=== PATIENT | female | born 1990 | race Hispanic/Latino ===

== ENCOUNTER 2016-06-20 21:20 | Emergency (ER) | payer OTHER, SELFPAY ==
[2016-06-20 21:39] LABS: Bilirubin Negative (Negative); Blood, Urine Negative (Negative); Clarity Clear (Clear); Glucose, Urine (Dipstick) Negative (Negative); Leukocyte Negative (Negative); Nitrite Negative (Negative); Protein, Urine (Dipstick) Trace mg/dL (Neg-Trace); pH, Urine 8.5 (5.0-9.0)
[2016-06-20 21:41] LABS: Pregnancy Test - Urine (BHCG) NEGATIVE (NEGATIVE); Pregu Control Bar Appear? YES (CONTROL BAR)
[2016-06-20] MEDS ORDERED: Sodium Chloride 0.9% 1,000 ML ONE (21:55)
[2016-06-20] MEDS ORDERED: Ketorolac Tromethamine 30 MG/ML VIAL ONE (21:55)
[2016-06-20] MEDS ORDERED: Ondansetron HCl/PF 4 MG/2 ML Vial ONE (21:55)
[2016-06-20 22:22] LABS: #Basophils 0.1 thou/uL (0.0-0.2); #Eosinphils 0.1 thou/uL (0.0-0.7); #Monocytes 0.5 thou/uL (0.11-0.59); #Neutrophils 3.4 thou/uL (1.40-6.50); %Eosinophils 1.8 % (0.0-10.0); %Lymphocytes 42.7 % (21.0-51.0); %Monocytes 6.6 % (0.0-10.0); Mean Corpuscular Hemoglobin 26.9 pg (27.0-31.0); Mean Platelet Volume 7.4 fL (7.4-10.4); Platelet Count 246 thou/uL (130-400); RBC Distribution Width 14.5 % (11.5-14.5); Red Blood Cell (RBC) Count 4.09 mill/uL (4.20-5.40)
[2016-06-20 22:37] LABS: ALT (SGPT) 16 U/L (8-55); AST (SGOT) 15 U/L (5-34); Albumin 4.1 g/dL (3.5-5.0); Alkaline Phosphatase 71 U/L (40-150); Anion Gap 13 mmol/L (10-20); BUN (Urea Nitrogen) 10 mg/dL (7.0-18.7); Bilirubin, Total 0.2 mg/dL (0.2-1.2); Calc. Creatinine Clearance 0 mL/min (70-130); Calcium 9.1 mg/dL (7.8-10.44); Carbon Dioxide 26 mmol/L (22-29); Chloride 103 mmol/L (98-107); Estimated GFR-MDRD Greater than 90; Globulin 2.7 g/dL (2.4-3.5); Glucose 102 mg/dL (70-105); Lipase 26 U/L (8-78); Protein, Total 6.8 g/dL (6.0-8.3); Sodium 138 mmol/L (136-145)
[2016-06-22 00:24] LABS: Chlamydia by PCR Not Detected (NotDetected); GC by PCR Not Detected (NotDetected)
== END 2016-06-20 22:56 | disposition home or self-care (01) ==
LOC: NAV ERS 21:20
DX: R10.32 Left lower quadrant pain (principal); R10.12 Left upper quadrant pain; F17.210 Nicotine dependence, cigarettes, uncomplicated
CPT/HCPCS: 80053; 81003; 81025; 83690; 85025; 87491; 87591; 96361; 96374; 96375; J1885; J2405; J7050

== ENCOUNTER 2016-07-31 21:29 | Emergency (ER) | payer SELFPAY ==
[2016-07-31 22:07] LABS: Bilirubin Negative (Negative); Blood, Urine Moderate (Negative); Clarity Cloudy (Clear); Glucose, Urine (Dipstick) Negative (Negative); Leukocyte Moderate (Negative); Nitrite Positive (Negative); Protein, Urine (Dipstick) 100 mg/dL (Neg-Trace); Specific Gravity, Urine 1.015 (1.005-1.030); Urobilinogen 0.2 mg/dL (0.2-1.0)
[2016-07-31 22:08] LABS: Pregnancy Test - Urine (BHCG) Negative (NEGATIVE); Pregu Control Background? CLEAR/WHITE (CLR/WHITE); Pregu Control Bar Appear? YES (CONTROL BAR); Specific Gravity 1.015 (1.002-1.036)
[2016-07-31] MEDS ORDERED: Acetaminophen 325 MG TAB ONE (22:09)
[2016-07-31 22:10] LABS: Bacteria/HPF 3+ HPF (None Seen); RBC/HPF 21-50 HPF (0-3)
[2016-07-31 22:16] LABS: Band 10 % (5-11); Hemoglobin 12.7 g/dL (12.0-16.0); Lymphocytes 10 % (21-51); MDiff Complete? YES; Mean Corpuscular HGB CONC 32.2 g/dL (32.0-36.0); Mean Corpuscular Hemoglobin 27.3 pg (27.0-31.0); Mean Corpuscular Volume 84.7 fl (81.0-99.0); Mean Platelet Volume 7.3 fL (7.4-10.4); Monocytes 5 % (0-10); Neutrophil 73 % (42-75); PLT Morphology Comment Appears Adequate; Platelet Count 227 thou/uL (130-400); RBC Distribution Width 13.4 % (11.5-14.5); RBC Morphology Normal; Reactive Lymphocytes 2 % (0-10); Red Blood Cell (RBC) Count 4.64 mill/uL (4.20-5.40); White Blood Cell (WBC) Count 12.3 thou/uL (4.8-10.8)
[2016-07-31 22:22] LABS: ALT (SGPT) 21 U/L (8-55); AST (SGOT) 22 U/L (5-34); Alkaline Phosphatase 94 U/L (40-150); Anion Gap 18 mmol/L (10-20); BUN (Urea Nitrogen) 14 mg/dL (7.0-18.7); Bilirubin, Total 0.6 mg/dL (0.2-1.2); Calc. Creatinine Clearance 0 mL/min (70-130); Calcium 9.2 mg/dL (7.8-10.44); Carbon Dioxide 21 mmol/L (22-29); Chloride 101 mmol/L (98-107); Estimated GFR-MDRD 82; Globulin 3.4 g/dL (2.4-3.5); Glucose 70 mg/dL (70-105); Potassium 3.4 mmol/L (3.5-5.1); Protein, Total 7.4 g/dL (6.0-8.3); Sodium 137 mmol/L (136-145)
--- NOTE | 2016-07-31 22:34 | RAD ---
PA AND LATERAL CHEST X-RAY 07/31/16 HISTORY: Fever and chills for three days. Nausea. Headache. FINDINGS: The cardiac silhouette and pulmonary vasculature are within normal limits. The lungs are clear. Osse ous structures are intact. There is mild gaseous distention of loops of bowel beneath the left hemid iaphragm. IMPRESSION: No acute cardiopulmonary process. POS: [facility]
[2016-07-31 22:42] LABS: Base Excess -2.1 mEq/L (0 (+/- 2.5))
[2016-07-31 22:43] LABS: Hemoglobin (Hb) 11.6 g/dL (11.7-15.5)
[2016-07-31] MEDS ORDERED: Sodium Chloride 0.9% 1,000 ML ONE (23:37)
[2016-07-31] MEDS ORDERED: cefTRIAXone\\ROCEPHIN 1 GM VIAL ONE (23:37)
[2016-07-31] MEDS ORDERED: Sodium Chloride 0.9% 100 ML ONE (23:37)
[2016-08-01 00:27] LABS: Lactic Acid 1.3 mmol/L (0.5-2.2)
== END 2016-08-01 00:40 | disposition short-term general hospital (02) ==
LOC: NAV ERS 21:29
DX: A41.9 Sepsis, unspecified organism (principal); N39.0 Urinary tract infection, site not specified; Z87.891 Personal history of nicotine dependence
CPT/HCPCS: 36415; 71020; 80053; 81003; 81015; 81025; 82805; 83605; 85025; 87040; 96361; 96365; J0696; J7050